=== PATIENT | female | born 1975 | race Caucasian/White ===

== ENCOUNTER 2023-03-01 21:50 | Emergency (ER) | payer SELFPAY ==
--- NOTE | ~2023-03-01 | XR_ITS ---
Portable chest x-ray Comparison: None Clinical History: Chest pain Findings: Lungs are clear, without focal consolidation or pleural effusion. Cardiomediastinal silho uette is unremarkable. Bones and soft tissues are unremarkable. Impression: Normal chest. Reviewed, dictated and finalized at location M. Impression: Normal chest.
[2023-03-01 21:51] VITALS: BP 116/75; PULSE 82; RESP 14; TEMP 36.2; O2SAT 100
[2023-03-01 22:00] VITALS: BP 122/86; PULSE 82; RESP 16; TEMP 36.4; O2SAT 100
--- NOTE | 2023-03-01 22:02 | PC.NURSE ---
Patient states that she has a hx of panic attacks. Patient states the attack last night lasted roughly four hours when normally they last one hour.
--- NOTE | 2023-03-01 22:12 | ECG_ITS ---
Measurements Intervals [place] Rate: 62 P: 48 HI: 134 QRS: 8 QRSD: 89 T: 18 QT: 415 QTc: 423 Interpretive Statements SINUS RHYTHM VOLTAGE CRITERIA FOR LVH BORDERLINE ECG NO PREVIOUS ECG AVAILABLE FOR COMPARISON Electronically Signed On 03-02-2023 6:45:43 CDT by Wan Banks D.O.
[2023-03-01] MEDS: SODIUM CHLORIDE 0.9% IV 1,000 ML 999 ML IV CONT (22:24)
[2023-03-01] MEDS: hydrOXYzine HCL 25 MG TABLET PO (22:24)
--- NOTE | 2023-03-01 22:29 | ED.GENADULT ---
HPI - General Adult General Chief complaint: Anxiety Stated complaint: Anxiety Time Seen by Provider: 03/01/23 22:03 History of Present Illness HPI narrative: Patient 48-year-old female who presents the emergency department with chief complaint of anxiety and possible dehydration. 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 The patient denies diaphoresis the patient reports she is not having any thoughts of suicidal or homicidal ideation the patient denies auditory or visual hallucinations. Related Data Home Medications Medication Instructions Recorded Confirmed cetirizine 10 mg tablet (Zyrtec) 10 mg PO DAILY PRN allergy symptoms 10/11/21 12/21/22 cyanocobalamin (vitamin B-12) 1,000 mcg PO DAILY 10/11/21 12/21/22 1,000 mcg tablet Allergies Allergy/AdvReac Type Severity Reaction Status Date / Time sulfamethoxazole Allergy Mild Unknown Verified 03/01/23 21:53 sulfamethizole Allergy Unknown Dermatitis Verified 03/01/23 21:53 trimethoprim Allergy Unknown Dermatitis Verified 03/01/23 21:53 acetaminophen [From Vicodin] Allergy Other Verified 03/01/23 21:53 hydrocodone [From Vicodin] Allergy Other Verified 03/01/23 21:53 Review of Systems Review of Systems: A 10 system review of systems was completed on the patient and is negative except for what is stated in the HPI. Nursing and ancillary documentation was reviewed. FORMERLY [facility], [facility] Past Medical History Medical History Abnormal fasting glucose (06/30/21) glucose 100 on 06/30/2021. fasting glucose 88 on 11/09/2022. Acute non-recurrent maxillary sinusitis Acute sinusitis Anemia hemoglobin 12.1 on 11/09/2022 with vitamin B12 447 and folic acid 6.0. BMI 23.0-23.9, adult BMI 25.0-25.9,adult BMI 30.0-30.9,adult Chronic low back pain with left-sided sciatica COVID-19 (08/30/21) positive test 09/08/2021 Cubital tunnel syndrome on right Essential (primary) hypertension Hx of hyperparathyroidism PTH levels completely normal at 42 with calcium normal at 9.0 on 11/09/2022. Hypersomnia Mixed hyperlipidemia (06/30/21) total cholesterol 244, triglycerides 100, HDL 54 and LDL 168 on 06/30/2021. Total cholesterol 219, triglycerides 306, HDL 36, LDL 128 on 11/09/2022. Obesity (BMI 30.0-34.9) Osteoarthritis involving multiple joints on both sides of body Overweight (BMI 25.0-29.9) Pharyngitis Viral gastroenteritis Vitamin D deficiency (06/30/21) level low at 12 on 06/30/2021. Level low at 17.5 on 11/09/2022. Family History Family History Grandparent Diabetes mellitus Mother Family history of multiple sclerosis, Onset Age: 45 Father Hypertension Social History Social History Smoking status: Never smoker Alcohol intake: never Substance use: never Substance use type: does not use Lack of Transportation: No Lack of Food: Never True Current Housing: I Have Housing Concerned About Future Housing: No Difficulty Paying Gas/Electric Bills: No Difficulty Paying for Meds: No Currently Unemployed: No Education: Trade/Vocational Certificate Difficulty w/ Childcare or Family Care: No Exam Narrative: GENERAL: Well-appearing, well-nourished, and in no acute distress. HEAD: Normocephalic, atraumatic. EYES: PERRLA and EOMI. ENT: Nares clear, no rhinorrhea or epistaxis. Mucous membranes moist. NECK: Supple. CHEST: Clear to auscultation. No respiratory distress. Chest wall is t
[2023-03-01 22:34] LABS: Basophils Percent Auto 0.6 % (0.2-1.2); Eosinophils Absolute Auto 0.2 K/mm3 (0-0.3); Eosinophils Percent Auto 3.4 % (0-4.4); Hematocrit 37.1 % (37.0-47.0); Hemoglobin 12.1 g/dL (12.0-15.0); Immature Granulocyte Absolute 0.01 K/mm3 (0.00-0.031); Immature Granulocyte Percent A 0.2 % (0-0.5); Lymphocytes Absolute Auto 1.52 K/mm3 (0.9-3.2); Lymphocytes Percent Auto 32.1 % (18.3-44.2); Mean Corpuscular HGB Conc 32.6 g/dl (32-36); Mean Corpuscular Hemoglobin 29.1 pg (26-34); Mean Corpuscular Volume 89.2 fl (80-100); Mean Platelet Volume 11.6 fl (7.4-10.4); Monocytes Absolute Auto 0.3 K/mm3 (0.1-0.6); Monocytes Percent Auto 7.2 % (2.6-8.5); Neutrophils Absolute Auto 2.7 K/mm3 (1.3-6.7); Neutrophils Percent Auto 56.5 % (45.5-73.1); Platelet Count Result 176 k/mm3 (150-375); Red Blood Count 4.16 M/mm3 (4.2-5.4); Red Cell Distribution Width 14.9 % (11.5-14.5); White Blood Count 4.7 K/mm3 (4.5-10.0)
[2023-03-01 22:50] LABS: INR 1.1; Prothrombin Time 14.5 Seconds (11.1-14.7)
[2023-03-01 22:51] LABS: Partial Thromboplastin Time 28.1 SECONDS (22.3-36.8)
[2023-03-01 22:55] LABS: Alanine Aminotransferase 12 U/L (6-35); Albumin Level 3.8 g/dL (3.5-5.1); Alkaline Phosphatase 53 U/L (38-126); Anion Gap 7 mmol/L (8-16); Aspartate Amino Transferase 31 U/L (14-36); Bilirubin,Total 0.6 mg/dL (0.2-1.3); Blood Urea Nitrogen 11 mg/dL (7-17); Calcium 8.7 mg/dL (8.4-10.2); Carbon Dioxide 25 mmol/L (22-30); Chloride 107 mmol/L (98-107); Estimated CRCL calculation 72 ml/min; Estimated Glomerular Filt Rate > 60; Glucose 108 mg/dL (65-110); Magnesium 1.8 mg/dL (1.6-2.3); Sodium 139 mmol/L (137-145)
[2023-03-01 22:56] LABS: Troponin I 0.013 ng/mL (0.000-0.034)
--- NOTE | 2023-03-01 23:02 | PC.NURSE ---
Patient complains of nausea. Notified Dr. Montenegro who advised to give 4mg Zofran IVP.
[2023-03-01] MEDS: ONDANSETRON INJ 4 MG/2 ML VIAL IV PUSH (23:06)
[2023-03-01 23:41] VITALS: BP 123/88; PULSE 60; RESP 17; TEMP 36.6; O2SAT 100
== END 2023-03-01 23:42 | disposition home or self-care (01) ==
PROVIDERS: Emergency Provider Emergency Medicine; PCP Family Medicine
DX: F41.0 Panic disorder [episodic paroxysmal anxiety] (principal); R07.89 Other chest pain; I10 Essential (primary) hypertension; E78.2 Mixed hyperlipidemia
CPT/HCPCS: 36415; 71045; 80053; 83735; 84484; 85025; 85610; 85730; 93005; 96361; 96374; 99284; A9270; J2405; J7030

== ENCOUNTER 2023-08-08 00:55 | Day surgery (SDC) | payer OTHER, SELFPAY ==
[2023-07-24 14:50] VITALS: BMI 28.3
--- NOTE | 2023-08-06 11:46 | SUR.PREOP ---
Patient called regarding upcoming procedure. Message left on patient's voicemail regarding preop instructions, appointment times, and procedure prep.
[2023-08-08 12:20] VITALS: BP 162/93; PULSE 78; RESP 20; TEMP 36.2; O2SAT 100; BMI 27.2
[2023-08-08] MEDS: LACTATED RINGERS 1,000 ML 150 ML IV CONT (12:38)
--- NOTE | 2023-08-08 12:38 | PM.HPGS ---
History of Present Illness History of Present Illness Consent: Risks, benefits, and alternatives have been discussed and questions answered. Patient agrees to proceed with procedure. Chief complaint: neoplasm screening Narrative: Devorah Cisneros is a 48 year old female here for first screening colonoscopy Review of Systems Constitutional: Constitutional: Denies headache(s) and Denies weakness Eyes: Eyes: Denies blurry vision ENT: Reports Normal hearing present, Denies headache(s) and Denies neck pain Cardiovascular: Cardiovascular: Denies chest pain and Denies dyspnea Respiratory: Respiratory: Denies dyspnea Gastrointestinal: Gastrointestinal: Reports no additional gastrointestinal complaints Genitourinary: Genitourinary: Denies dysuria Musculoskeletal: Musculoskeletal: Denies neck pain Integumentary/Breasts: Skin/Breast: Denies dry skin Neurologic: Reports Normal hearing present, Denies headache(s) and Denies weakness Psychiatric: Psychiatric: Denies anxiety Endocrine: Endocrine: Denies change in body appearance Hematologic/Lymphatic: Hematologic/Lymphatic: Denies easy bleeding Allergic/Immunologic: Allergic/Immunologic: Denies urticaria [facility] Past Medical History Medical History (Updated 05/17/23 @ 11:07 by Ricardo Jean MD) Abnormal fasting glucose (06/30/21) glucose 100 on 06/30/2021. fasting glucose 88 on 11/09/2022. Acute non-recurrent maxillary sinusitis Acute sinusitis Anemia hemoglobin 12.1 on 11/09/2022 with vitamin B12 447 and folic acid 6.0. BMI 23.0-23.9, adult BMI 25.0-25.9,adult BMI 29.0-29.9,adult BMI 30.0-30.9,adult Body mass index (BMI) of 19 or less in adult (05/19/19) Breast cancer screening by mammogram Chronic low back pain with left-sided sciatica Colon cancer screening COVID (05/02/23) 2nd episode 05/02/2023 COVID-19 (08/30/21) positive test 09/08/2021 Cubital tunnel syndrome on right Essential (primary) hypertension Hx of hyperparathyroidism PTH levels completely normal at 42 with calcium normal at 9.0 on 11/09/2022. Hypersomnia Mixed hyperlipidemia (06/30/21) total cholesterol 244, triglycerides 100, HDL 54 and LDL 168 on 06/30/2021. Total cholesterol 219, triglycerides 306, HDL 36, LDL 128 on 11/09/2022. Obesity (BMI 30.0-34.9) Osteoarthritis involving multiple joints on both sides of body Overweight (BMI 25.0-29.9) Pharyngitis Viral gastroenteritis Vitamin D deficiency (06/30/21) level low at 12 on 06/30/2021. Level low at 17.5 on 11/09/2022. Family History Family History Grandparent Diabetes mellitus Mother Family history of multiple sclerosis, Onset Age: 45 Father Hypertension Social History Social History (Updated 05/17/23 @ 10:25 by Eli Siegel MA) Smoking packs per day: 1 Smoking cigarettes per day: 20.0 Years smoked: 10 Smoking pack-years: 10.00 Smoking status: Former smoker Tobacco type: cigarettes Alcohol intake: never Substance use: never Substance use type: does not use Lack of Transportation: No Lack of Food: Never True Current Housing: I Have Housing Concerned About Future Housing: No Difficulty Paying Gas/Electric Bills: YES Difficulty Paying for Meds: No Currently Unemployed: No Education: Trade/Vocational Certificate Difficulty w/ Childcare or Family Care: No Meds Home Medications and Allergies Home Medications Medication Instructions Recorded Confirmed Type ondansetron HCl 8 mg tablet 8 mg PO Q8H PRN nausea and 08/15/21 08/08/23 Rx vomiting #30 tabs metoprolol succinate 25 mg 25 mg PO DAILY #90 tabs 11/02/22 08/08/23 Rx tablet,extended release 24 hr paroxetine HCl 40 mg tablet 40 mg PO DAILY #90 tabs 02/19/23 08/08/23 Rx fluticasone propionate 50 1 spray intranasal BID #18.2 mL 02/26/23 08/08/23 Rx mcg/actuation nasal spray,suspension (Flonase Allergy Relief) pregabalin 75 mg
--- NOTE | 2023-08-08 12:42 | WPDANESEPP ---
Anes - Eval Pre Procedure Procedure: Operation Date: 08/08/23 13:30 Proposed Procedures p Screening Colonoscopy - Ivan Louise MD Date/Time: 08/08/23 12:42 Pre Op Diagnosis: neoplasm screening Patient Data Age: 48 Gender: F Height: 1.65 m Weight: 74.3 kg Last Vital Signs Temp 97.2 F L 08/08/23 12:20 Pulse 78 08/08/23 12:20 Resp 20 08/08/23 12:20 BP 162/93 H 08/08/23 12:20 Pulse Ox 100 08/08/23 12:20 O2 Del Method Room Air 08/08/23 12:20 Allergies Allergy/AdvReac Type Severity Reaction Status Date / Time sulfamethoxazole Allergy Mild Unknown Verified 08/08/23 12:27 sulfamethizole Allergy Unknown Dermatitis Verified 08/08/23 12:27 trimethoprim Allergy Unknown Dermatitis Verified 08/08/23 12:27 acetaminophen [From Vicodin] Allergy Other Verified 08/08/23 12:27 hydrocodone [From Vicodin] Allergy Other Verified 08/08/23 12:27 Home Medications Medication Instructions Recorded Confirmed Type ondansetron HCl 8 mg tablet 8 mg PO Q8H PRN nausea and 08/15/21 08/08/23 Rx vomiting #30 tabs metoprolol succinate 25 mg 25 mg PO DAILY #90 tabs 11/02/22 08/08/23 Rx tablet,extended release 24 hr paroxetine HCl 40 mg tablet 40 mg PO DAILY #90 tabs 02/19/23 08/08/23 Rx fluticasone propionate 50 1 spray intranasal BID #18.2 mL 02/26/23 08/08/23 Rx mcg/actuation nasal spray,suspension (Flonase Allergy Relief) pregabalin 75 mg capsule (Lyrica) 75 mg PO BID #180 caps 05/08/23 08/08/23 Rx zolpidem 10 mg tablet (Ambien) See Rx Instructions PO . q.h.s. 05/18/23 08/08/23 Rx PRN insomnia #30 tabs dicyclomine 10 mg capsule 10 mg PO QID PRN abdominal pain 06/04/23 08/08/23 Rx #120 caps rimegepant 75 mg disintegrating 75 mg PO ONCE PRN migraine 06/07/23 08/08/23 Rx tablet (Nurtec ODT) headache #14 tabs Patient hx anesthesia problems: none Family hx anesthesia problems: none Results Review: All pre-operative results and documents have been reviewed as part of the pre-operative evaluation. [facility] Past Medical History Medical History (Updated 05/17/23 @ 11:07 by Ricardo Jean MD) Abnormal fasting glucose (06/30/21) glucose 100 on 06/30/2021. fasting glucose 88 on 11/09/2022. Acute non-recurrent maxillary sinusitis Acute sinusitis Anemia hemoglobin 12.1 on 11/09/2022 with vitamin B12 447 and folic acid 6.0. BMI 23.0-23.9, adult BMI 25.0-25.9,adult BMI 29.0-29.9,adult BMI 30.0-30.9,adult Body mass index (BMI) of 19 or less in adult (05/19/19) Breast cancer screening by mammogram Chronic low back pain with left-sided sciatica Colon cancer screening COVID (05/02/23) 2nd episode 05/02/2023 COVID-19 (08/30/21) positive test 09/08/2021 Cubital tunnel syndrome on right Essential (primary) hypertension Hx of hyperparathyroidism PTH levels completely normal at 42 with calcium normal at 9.0 on 11/09/2022. Hypersomnia Mixed hyperlipidemia (06/30/21) total cholesterol 244, triglycerides 100, HDL 54 and LDL 168 on 06/30/2021. Total cholesterol 219, triglycerides 306, HDL 36, LDL 128 on 11/09/2022. Obesity (BMI 30.0-34.9) Osteoarthritis involving multiple joints on both sides of body Overweight (BMI 25.0-29.9) Pharyngitis Viral gastroenteritis Vitamin D deficiency (06/30/21) level low at 12 on 06/30/2021. Level low at 17.5 on 11/09/2022. Family History Family History Grandparent Diabetes mellitus Mother Family history of multiple sclerosis, Onset Age: 45 Father Hypertension Social History Social History (Updated 05/17/23 @ 10:25 by Eli Siegel MA) Smoking packs per day: 1 Smoking cigarettes per day: 20.0 Years smoked: 10 Smoking pack-years: 10.00 Smoking status: Former smoker Tobacco type: cigarettes Alcohol intake: never Substance use: never Substance use type: does not use Lack of Transportation: No Lack of Food: Never True Current Housing:
--- NOTE | 2023-08-08 12:45 | WPDANESEPPF ---
Anes - Initial Pre Proc Eval Procedure: Operation Date: 08/08/23 13:30 Proposed Procedures p Screening Colonoscopy - Ivan Louise MD Date/Time: 08/08/23 12:45 Surgeon: Ivan Louise MD Pre Op Diagnosis: neoplasm screening Patient Data Age: 48 Gender: F Height: 1.65 m Weight: 74.3 kg Last Vital Signs Temp 97.2 F L 08/08/23 12:20 Pulse 78 08/08/23 12:20 Resp 20 08/08/23 12:20 BP 162/93 H 08/08/23 12:20 Pulse Ox 100 08/08/23 12:20 O2 Del Method Room Air 08/08/23 12:20 Allergies Allergy/AdvReac Type Severity Reaction Status Date / Time sulfamethoxazole Allergy Mild Unknown Verified 08/08/23 12:27 sulfamethizole Allergy Unknown Dermatitis Verified 08/08/23 12:27 trimethoprim Allergy Unknown Dermatitis Verified 08/08/23 12:27 acetaminophen [From Vicodin] Allergy Other Verified 08/08/23 12:27 hydrocodone [From Vicodin] Allergy Other Verified 08/08/23 12:27 Home Medications Medication Instructions Recorded Confirmed Type ondansetron HCl 8 mg tablet 8 mg PO Q8H PRN nausea and 08/15/21 08/08/23 Rx vomiting #30 tabs metoprolol succinate 25 mg 25 mg PO DAILY #90 tabs 11/02/22 08/08/23 Rx tablet,extended release 24 hr paroxetine HCl 40 mg tablet 40 mg PO DAILY #90 tabs 02/19/23 08/08/23 Rx fluticasone propionate 50 1 spray intranasal BID #18.2 mL 02/26/23 08/08/23 Rx mcg/actuation nasal spray,suspension (Flonase Allergy Relief) pregabalin 75 mg capsule (Lyrica) 75 mg PO BID #180 caps 05/08/23 08/08/23 Rx zolpidem 10 mg tablet (Ambien) See Rx Instructions PO . q.h.s. 05/18/23 08/08/23 Rx PRN insomnia #30 tabs dicyclomine 10 mg capsule 10 mg PO QID PRN abdominal pain 06/04/23 08/08/23 Rx #120 caps rimegepant 75 mg disintegrating 75 mg PO ONCE PRN migraine 06/07/23 08/08/23 Rx tablet (Nurtec ODT) headache #14 tabs Patient hx anesthesia problems: none Family hx anesthesia problems: none Results Review: All pre-operative results and documents have been reviewed as part of the pre-operative evaluation. [facility] Past Medical History Medical History (Updated 05/17/23 @ 11:07 by Ricardo Jean MD) Abnormal fasting glucose (06/30/21) glucose 100 on 06/30/2021. fasting glucose 88 on 11/09/2022. Acute non-recurrent maxillary sinusitis Acute sinusitis Anemia hemoglobin 12.1 on 11/09/2022 with vitamin B12 447 and folic acid 6.0. BMI 23.0-23.9, adult BMI 25.0-25.9,adult BMI 29.0-29.9,adult BMI 30.0-30.9,adult Body mass index (BMI) of 19 or less in adult (05/19/19) Breast cancer screening by mammogram Chronic low back pain with left-sided sciatica Colon cancer screening COVID (05/02/23) 2nd episode 05/02/2023 COVID-19 (08/30/21) positive test 09/08/2021 Cubital tunnel syndrome on right Essential (primary) hypertension Hx of hyperparathyroidism PTH levels completely normal at 42 with calcium normal at 9.0 on 11/09/2022. Hypersomnia Mixed hyperlipidemia (06/30/21) total cholesterol 244, triglycerides 100, HDL 54 and LDL 168 on 06/30/2021. Total cholesterol 219, triglycerides 306, HDL 36, LDL 128 on 11/09/2022. Obesity (BMI 30.0-34.9) Osteoarthritis involving multiple joints on both sides of body Overweight (BMI 25.0-29.9) Pharyngitis Viral gastroenteritis Vitamin D deficiency (06/30/21) level low at 12 on 06/30/2021. Level low at 17.5 on 11/09/2022. Family History Family History Grandparent Diabetes mellitus Mother Family history of multiple sclerosis, Onset Age: 45 Father Hypertension Social History Social History (Updated 05/17/23 @ 10:25 by Eli Siegel MA) Smoking packs per day: 1 Smoking cigarettes per day: 20.0 Years smoked: 10 Smoking pack-years: 10.00 Smoking status: Former smoker Tobacco type: cigarettes Alcohol intake: never Substance use: never Substance use type: does not use Lack of Transportation: No
[2023-08-08 13:06] VITALS: BP 132/85; PULSE 63; RESP 20; O2SAT 100
[2023-08-08 13:16] VITALS: BP 134/88; PULSE 63; RESP 20; O2SAT 100
[2023-08-08 13:26] VITALS: BP 136/101; PULSE 68; RESP 20; O2SAT 100
== END 2023-08-08 13:32 | disposition home or self-care (01) ==
PROVIDERS: PCP Family Medicine; Visit Provider Internal Medicine Gastroenterology
PROC: 0DJD8ZZ Inspection of Lower Intestinal Tract, Via Natural or Artificial Opening Endoscopic (ICD-10-PCS; CPT 45378; principal; 2023-08-08 13:30)
DX: Z12.11 Encounter for screening for malignant neoplasm of colon (principal); I10 Essential (primary) hypertension; Z87.891 Personal history of nicotine dependence
CPT/HCPCS: 45378; J2704; J7120

== ENCOUNTER → 2023-09-19 12:25 | Outpatient (CLI) | payer OTHER, SELFPAY ==
--- NOTE | ~2023-09-19 | MM_ITS ---
EXAMINATION: MM screening eileen BI w thaddeus HISTORY: Screening mammogram TECHNIQUE: Craniocaudal and mediolateral oblique 3-D tomosynthesis images were obtained and synthetic 2-D images were generated. CAD analysis was submitted and interpreted. COMPARISON: No prior mammogram is available for comparison at this institution. BREAST PARENCHYMAL COMPOSITION: There are scattered areas of fibroglandular density. FINDINGS: No suspicious mass, calcification, or architectural distortion are identified in either nazanin ast to suggest malignancy. IMPRESSION: 1. No mammographic evidence of malignancy. 2. Recommend routine screening mammography in one year. BI-RADS Category 1: Negative Reviewed, dictated and finalized at location A. [employer] CRANE OPERATOR
== END ==
PROVIDERS: PCP Family Medicine; Visit Provider Family Medicine
DX: Z12.31 Encounter for screening mammogram for malignant neoplasm of breast (principal)
CPT/HCPCS: 77063; 77067

== ENCOUNTER 2023-09-27 09:04 | Outpatient (CLI) | payer OTHER, SELFPAY ==
--- NOTE | 2023-10-16 12:17 | WPDHOMESLEEP ---
Sleep Study - Home Unattended Date of Study: 09/27/23 Ordering Provider: Ricardo Jean MD Interpreting Provider: Genevieve Denton, DO Home Sleep Study Type: Watch PAT Height: 1.66 m Weight: 77.111 kg Body Mass Index: 27.8 Neck Circumference (inches): 14 [place]: 0 Reason for Sleep Study Insomnia Sleep History The patient is a 48-year-old female with anxiety, depression, insomnia, irritable bowel syndrome, neuropathy and history of tobacco use that had a sleep study ordered by her primary care for evaluation of sleep apnea. The patient occasionally awakens from sleep short of breath. She rarely awakens at night with heartburn, belching or cough. She rarely snores and is rarely loud enough that others complain. She frequently has trouble sleeping when she has a cold. She occasionally wakes up gasping for air throughout the night. She denies having breathing problems at night observed by herself or others. She occasionally sweats excessively at night. She occasionally has heart palpitations or irregular heartbeats during the night. She denies falling asleep during the day and while driving. She rarely experiences loss of muscle tone when extremely emotional. She occasionally has trouble at school or work due to sleepiness. She denies feeling unable to move while waking up or falling asleep. She rarely experiences vivid dreamlike scenes upon awakening or falling asleep. She constantly feels afraid to go to sleep. She frequently has nightmares. She occasionally remembers her dreams. She constantly has thoughts racing through her mind. She constantly feels sad, depressed and anxious. She constantly has muscular tension. She occasionally notices parts of her body jerk. She denies kicking during the night. She occasionally has crawling and aching feelings in her legs but rarely has leg pain during the night. She denies grinding her teeth during sleep and denies awakening with morning jaw pain. She is constantly bothered by pain during the day and frequently awakened by pain during the night. She frequently wakes up feeling stiff in the morning. She frequently wakes up with sore or achy muscles. She frequently wakes up with pain in the neck, spine and other joints. She goes to bed at 7:30 p.m. on both weekdays and weekends. He can take her 1-3 hours to fall asleep. She wakes up 1-2 times throughout the night for unknown reasons. She will turn on the TV and aching take her up to an hour to fall back asleep. She wakes up at 3:30 a.m. on both weekdays and weekends. She typically gets 3-4 hours of sleep per night. She will stay in bed for less than 10 minutes after waking up in the morning. She currently lives with her and 2 adult children. She denies consuming any caffeinated beverages within 2 hours of bedtime. She denies engaging in physical exercise before bedtime. She will watch television before falling asleep. She denies taking naps in the afternoon or the evening. She consumes 2 caffeinated beverages per day. She quit smoking cigarettes 7 years ago. She denies alcohol and recreational drug use. [facility] Past Medical History Medical History Abnormal fasting glucose (06/30/21) glucose 100 on 06/30/2021. fasting glucose 88 on 11/09/2022. Acute non-recurrent maxillary sinusitis Acute sinusitis Anemia hemoglobin 12.1 on 11/09/2022 with vitamin B12 447 and folic acid 6.0. BMI 23.0-23.9, adult BMI 25.0-25.9,adult BMI 29.0-29.9,adult BMI 30.0-30.9,adult Body mass index (BMI) of 19 or less in adult (05/19/19) Breast cancer screening by mammogram mammogram normal 09/19/2023. Chronic low back pain with left-sided sciatica Colon cancer screening (08/08/23) Normal colonoscopy 08/08/2023 with recheck in 10 years. COVID (05/02/23) 2nd episode 05/02/2023 COVID-19 (08/30/21) positive test 09/08/2021 Cubital tunnel syndrome on right Essential (primary) hy
[2023-10-16 12:18] VITALS: BMI 27.8
== END 2023-09-28 13:41 | disposition home or self-care (01) ==
LOC: ANHCSM 09:26
PROVIDERS: PCP Family Medicine; Visit Provider Family Medicine
DX: G47.10 Hypersomnia, unspecified (principal); G47.00 Insomnia, unspecified; R06.83 Snoring; I10 Essential (primary) hypertension
CPT/HCPCS: 95800